=== PATIENT | female | born 1980 | race African-American/Black ===

== ENCOUNTER 2018-10-07 17:31 | Inpatient (IN) ==
[2018-10-07] MEDS ORDERED: Acetaminophen 325 MG Tablet PO PRN (18:15)
[2018-10-07] MEDS ORDERED: hydrALAZINE HCl Inj 20 MG/ML Vial IV.PUSH PRN ×2 (18:15→18:36)
[2018-10-07] MEDS ORDERED: Mag Sulf/Water 4 gm/100 ml 100 ML IV.SIG ONE (18:15)
[2018-10-07] MEDS ORDERED: Labetalol HCl Inj 100 MG/20 ML Vial IV.PUSH PRN ×3 (18:15→18:36)
[2018-10-07] MEDS ORDERED: Naloxone Inj 0.4 MG/ML Vial IV.PUSH PRN (18:17)
[2018-10-07] MEDS ORDERED: Oxytocin 30 Units/500ml Premix 30 UNITS/500 ML BAG IV.SIG ONE (18:17)
--- NOTE | 2018-10-07 18:27 | P.HPOB ---
History of Present Illness Primary Care Physician: No Primary Care Physician Deonna Santamaria Chief Complaint: High blood pressure History of Present Illness: Patient is a 38-year-old white female at 39 weeks she is Deonna Rosalio care and has a history of chronic hypertension is been on Procardia 20 mg a day. She states her blood pressures have been within normal limits until she saw Deonna Santamaria today and her blood pressure was 180/110 and she was sent here because of that. She does complain of a mild frontal headache but otherwise has no complaints or problems no abdominal pain no visual changes no swelling, baby is active and she is ubaldo every 2 minutes with a reactive NST. She has 2 ultrasounds in her records at 14 weeks and 20 weeks that are consistent with an EDC of 10/13/2018 make her now 39 weeks Weeks Gestation:: 39 Para: 2 : 3 Review of Systems All other systems reviewed negative except as stated in HPI [facility] - Medical History Medical History: Medical History (Last Updated 10/07/18 @ 18:23 by Shubham Page MD) Chronic hypertension affecting - Social History I have reviewed the patient's Social History: Yes - Tobacco History Smoking Status: Never smoker - Alcohol History How Often Do You Have a Drink Containing Alcohol: Never - Substance Use History Substance History: No History of Abuse - Travel History History of Recent Travel: No Recent Travel in the [place] Within the Last 8 Weeks: No Recent Travel Out of the Country Within the Last 8 Weeks: No Medications and Allergies Active Medications: Active Medications Acetaminophen (Tylenol) 650 mg PO Q4H PRN PRN Reason: PAIN SCALE 1 TO 2 Calcium Gluconate (Calcium Gluconate Inj) 1 gm IV.PUSH PRN PRN PRN Reason: Magnesium toxicity Hydralazine HCl (Apresoline Inj) 5 mg IV.PUSH NOW PRN PRN Reason: SEE LABEL COMMENTS Hydralazine HCl (Apresoline Inj) 10 mg IV.PUSH NOW PRN PRN Reason: SEE LABEL COMMENTS Lactated Ringer's (Lr 1000 Ml Inj) 1,000 mls @ 75 mls/hr IV.CONT .[id number] BAUDILIO Magnesium Sulfate (Magnesium Sulfate/Water 4 Gm/100 Ml Premix) 100 mls @ 300 mls/hr IV.SIG ONCE ONE Stop: 10/07/18 18:34 Magnesium Sulfate (Magnesium Sulfate/Water 40 Gm/1000 Ml Premix) 40 gm in 1, 000 mls @ 50 mls/hr IV.CONT Q24H BAUDILIO Labetalol HCl (Trandate Inj) 20 mg IV.PUSH NOW PRN PRN Reason: SEE LABEL COMMENTS Labetalol HCl (Trandate Inj) 40 mg IV.PUSH NOW PRN PRN Reason: SEE LABEL COMMENTS Labetalol HCl (Trandate Inj) 80 mg IV.PUSH NOW PRN PRN Reason: SEE LABEL COMMENTS Ondansetron HCl (Zofran Inj) 4 mg IV.PUSH Q6H PRN PRN Reason: NAUSEA OR VOMITING Sodium Chloride (Ns Flush) 2 ml IV.FLUSH BID BAUDILIO Sodium Chloride (Ns Flush) 2 ml IV.FLUSH PRN PRN PRN Reason: FLUSH AFTER USING IV ACCESS Allergies Allergy/AdvReac Type Severity Reaction Status Date / Time No Known Allergies Allergy Verified 10/07/18 18:19 Home Medications Medication Instructions Recorded Confirmed Type nifedipine [Procardia] 20 mg PO DAILY 10/07/18 10/07/18 History vit,[id number] 1 tab PO DAILY 10/07/18 10/07/18 History [PNV 29-1] Exam Vital signs: Vital Signs 10/07/18 18:00 Temperature 98.7 F Pulse Rate 116 H Respiratory Rate 17 Blood Pressure 174/119 H Intake & Output 10/06/18 10/07/18 10/07/18 18:59 06:59 18:59 Weight 92.533 kg Narrative: GENERAL: Well-nourished, well-developed patient. SKIN: Warm and dry. HEAD: Normocephalic and atraumatic. EYES: No scleral icterus. No injection or drainage. ENT: No nasal drainage noted. Mucous membranes pink. Airway patent. NECK: Supple, trachea midline. No JVD. CARDIOVASCULAR: tachy rate and reg rhythm without murmurs, gallops, or rubs. RESPIRATORY: Breath sounds equal bilaterally. No accessory muscle use. BREASTS: Bilateral exam showed no masses , no retractions, no nipple discharge. ABDOMEN/GI: Abdomen soft, non-tender, bowel sounds present, no rebound, no guarding Gravid to [-39] weeks size Fundal Height: [38-] GENITOURINARY: External Genitalia: intact and normal in appearance BUS glands: [-] Cervix: [-post] Dilatation: [-1] Effacement: [thick-] Station: [-High] Presentation: [-vtx by US] Membranes: [intact ] Uterine Contractions: [q 2min-] FHT's: Category: [1-] Baseline: [-133] Reactive: [-R] Variability: [mod-] Decels: [-0] EXTREMITIES: No cyanosis or edema. BACK: Nontender without obvious deformity. No CVA tenderness. NEUROLOGICAL: Awake and alert. Motor and sensory grossly within normal limits. Five out of 5 muscle strength in all muscle groups. Normal speech. Results - Labs Group B Strep: Negative - Imaging Cephalic presentation by ultrasound Caprini VTE Risk Assessment Caprini VTE Risk Assessment: No/Low Risk (score <= 1) Caprini Risk Assessment Model: Point Value = 1 Point Value = 2 Point Value = 3 Point Value = 5 Age 41-60 Minor surgery BMI > 25 kg/m2 Swollen legs Varicose veins or History of unexplained or recurrent spontaneous Oral contraceptives or hormone replacement Sepsis (< 1 month) Serious lung disease, including pneumonia (< 1 month) Abnormal pulmonary function Acute myocardial infarction Congestive heart failure (< 1 month) History of inflammatory bowel disease Medical patient at bed rest Age 61-74 Arthroscopic surgery Major open surgery (> 45 min) Laparoscopic surgery (> 45 min) Malignancy Confined to bed (> 72 hours) Immobilizing plaster cast Central venous access Age >= 75 History of VTE Family history of VTE Factor V Leiden Prothrombin [id number] Lupus anticoagulant Anticardiolipin antibodies Elevated serum homocysteine Heparin-induced thrombocytopenia Other congenital or acquired thrombophilia Stroke (< 1 month) Elective arthroplasty Hip, pelvis, or leg fracture Acute spinal cord injury (< 1 month) Prophylaxis Regimen: Total Risk Factor Score Risk Level Prophylaxis Regimen 0-1 Low Early ambulation 2 Moderate Order ONE of the following: *Sequential Compression Device (SCD) *Heparin 5000 units SQ BID 3-4 Higher Order ONE of the following medications: *Heparin 5000 units SQ TID *Enoxaparin/Lovenox 40 mg SQ daily (WT < 150 kg, CrCl > 30 mL/min) *Enoxaparin/Lovenox 30 mg SQ daily (WT < 150 kg, CrCl > 10-29 mL/min) *Enoxaparin/Lovenox 30 mg SQ BID (WT < 150 kg, CrCl > 30 mL/min) AND/OR *Sequential Compression Device (SCD) 5 or more Highest Order ONE of the following medications: *Heparin 5000 units SQ TID (Preferred with Epidurals) *Enoxaparin/Lovenox 40 mg SQ daily (WT < 150 kg, CrCl > 30 mL/min) *Enoxaparin/Lovenox 30 mg SQ daily (WT < 150 kg, CrCl > 10-29 mL/min) *Enoxaparin/Lovenox 30 mg SQ BID (WT < 150 kg, CrCl > 30 mL/min) AND *Sequential Compression Device (SCD) Assessment and Plan - Diagnosis (1) 39 weeks gestation of Code(s): Z3A.39 - 39 weeks gestation of Status: Acute (2) Chronic hypertension in obstetric context in third trimester Code(s): O10.913 - Unspecified pre-existing hypertension complicating , third trimester Status: Acute (3) Hypertensive crisis Code(s): I16.9 - Hypertensive crisis, unspecified Status: Acute - Plan This multiparous patient is 39 weeks with history of chronic hypertension now with a excessively high blood pressures in the 157412/100-119 range, she has mild headache but otherwise no symptomatology. She is been on Procardia p.o. and states she is taking this daily, she saw Deonna Santamaria today who then sent her straight here because her blood pressures were too high Plan is to follow the hypertensive emergency algorithm with IV magnesium sulfate seizure prophylaxis, IV antihypertensives Patient is ubaldo every 2 minutes but cervix shows no sign of change at this time very high and posterior, would recommend delivery as therapy for this hypertensive issue and will proceed with augmentation as needed.
[2018-10-07] MEDS ORDERED: Citric Acid/Sodium Citrate Liq 30 ML UDC PO SCH (18:30)
[2018-10-07 18:47] LABS: Hematocrit 38.1 % (35.0-46.0); Hemoglobin 12.7 gm/dL (11.6-15.3); Mean Corpuscular HGB Conc 33.3 % (32.0-36.0); Mean Corpuscular Hemoglobin 30.4 pg (27.0-34.0); Mean Corpuscular Volume 91.1 fL (80.0-100.0); Mean Platelet Volume 9.6 fL (7.0-11.0); Platelet Count 236 th/mm3 (150-450); Red Blood Count 4.19 mil/mm3 (4.00-5.30); Red Cell Distribution Width 13.9 % (11.6-17.2); White Blood Count 8.3 th/mm3 (4.0-11.0)
[2018-10-07] MEDS: Mag Sulf/Water 40 gm/1000 ml 40 GM/1,000 ML BAG IV.CONT SCH (18:59)
[2018-10-07 19:04] LABS: Anion Gap 8 meq/L (5-15); Aspartate Aminotransferase 35 U/L (15-37); Blood Urea Nitrogen 10 mg/dL (7-18); Calcium 9.2 mg/dL (8.5-10.1); Carbon Dioxide 23.4 meq/L (21.0-32.0); Chloride 104 meq/L (98-107); Glomerular Filtration Rate 85 mL/min (>89); Glucose,Random 76 mg/dL (74-106); Sodium 135 meq/L (136-145)
[2018-10-07 19:07] LABS: Alanine Aminotransferase 24 U/L (10-53); Alkaline Phosphatase 144 U/L (45-117); Total Protein 7.5 g/dL (6.4-8.2)
[2018-10-07 20:05] LABS: Amorphous Sediment,Urine Rare /hpf; Bilirubin,Urine Negative (Negative); Clarity,Urine Hazy (Clear); Color,Urine Yellow (Yellw/Straw); Glucose,Urine (UA) Negative (Negative); Leukocyte Esterase,Urine Negative (Negative); Nitrite,Urine Negative (Negative); Specific Gravity,Urine 1.009 (1.002-1.035); Squamous Epithelial Cell,Urine 2 /hpf (0-5)
[2018-10-08] MEDS ORDERED: Oxytocin 30 Units/500ml Premix 30 UNITS/500 ML BAG IV.SIG PRN (08:15)
--- NOTE | 2018-10-08 08:32 | P.OBLABOR ---
Subjective Interval history: Patient seen and examined this am.Pt reports she feels comfortable. Endorses movement. Denies contractions, LOF or bleeding. Her headache resolved. Denies CP, SOB, RUQ pain, dizziness, vision issues, or n/a. No other complaints. Objective Vital Signs: Vital Signs - 8 hr 10/08/18 00:57 10/08/18 00:58 10/08/18 02:04 Temperature 99.2 F Pulse Rate 84 95 H Respiratory Rate 18 18 Blood Pressure 120/68 148/95 H 10/08/18 02:10 10/08/18 03:02 10/08/18 03:10 Temperature Pulse Rate 82 83 95 H Respiratory Rate 18 Blood Pressure 114/78 10/08/18 04:00 10/08/18 04:03 10/08/18 04:05 Temperature Pulse Rate 84 101 H Respiratory Rate 18 Blood Pressure 138/95 H 10/08/18 04:10 10/08/18 05:01 10/08/18 05:05 Temperature Pulse Rate 83 94 H 101 H Respiratory Rate 18 Blood Pressure 133/91 H 10/08/18 05:10 10/08/18 06:10 10/08/18 06:15 Temperature Pulse Rate 95 H 94 H Respiratory Rate 18 Blood Pressure 113/60 10/08/18 07:05 10/08/18 07:43 10/08/18 08:00 Temperature 99.3 F Pulse Rate 89 94 H 101 H Respiratory Rate 18 Blood Pressure 117/73 135/91 H 10/08/18 08:10 10/08/18 08:12 Temperature Pulse Rate 85 Respiratory Rate 18 Blood Pressure Objective: Pelvic Exam: Dilatation: 2 Effacement:30 Station: -3 Presentation:vertex Membranes: intact Uterine Contractions: Irregular every 2-7 minutes FHT's: Category: 1 Baseline: 130 Reactive: minimal due to mag sulf treatment but (reactive prior to mag sulf treatment) Variability: minimal Decels: none Assessment and Plan - Diagnosis (1) 39 weeks gestation of Code(s): Z3A.39 - 39 weeks gestation of Status: Acute Plan: 38y/o female at 39 weeks gestation admitted for labor induction. complicated by chronic hypertension. -GBS negative -Cervical exam: /-3 -Patient started on mag sulfate, Pit and Cervidil - heart monitoring category 1 -Blood pressure 135/91 this morning, improving compared to admission BP of 174/ 119 -Continue with hypertension protocol as needed -Expectant delivery dw Dr. Camilo MD - Plan This multiparous patient is 39 weeks with history of chronic hypertension now with a excessively high blood pressures in the 431158/100-119 range, she has mild headache but otherwise no symptomatology. She is been on Procardia p.o. and states she is taking this daily, she saw Deonna Santamaria today who then sent her straight here because her blood pressures were too high Plan is to follow the hypertensive emergency algorithm with IV magnesium sulfate seizure prophylaxis, IV antihypertensives Patient is ubaldo every 2 minutes but cervix shows no sign of change at this time very high and posterior, would recommend delivery as therapy for this hypertensive issue and will proceed with augmentation as needed.
[2018-10-08] MEDS: Mag Sulf/Water 40 gm/1000 ml 40 GM/1,000 ML BAG IV.CONT SCH ×2 (14:14→22:23)
[2018-10-08] MEDS: fentaNYL Citrate Inj 100 MCG/2 ML Ampul IV.PUSH PRN ×4 (14:21→23:54)
--- NOTE | 2018-10-08 14:37 | P.OBLABOR ---
Subjective Interval history: Patient was resting comfortably during my evaluation. She has no concerns or complaints. She reports contractions at this time. She states that she does feel "a little funny "from the magnesium. Objective Vital Signs: Vital Signs - 8 hr 10/08/18 07:05 10/08/18 07:43 10/08/18 08:00 Temperature 99.3 F Pulse Rate 89 94 H 101 H Respiratory Rate 18 Blood Pressure 117/73 135/91 H 10/08/18 08:10 10/08/18 08:12 10/08/18 09:05 Temperature Pulse Rate 85 99 H Respiratory Rate 18 Blood Pressure 138/94 H 10/08/18 09:15 10/08/18 09:30 10/08/18 09:52 Temperature 99.0 F Pulse Rate 87 90 96 H Respiratory Rate 18 18 Blood Pressure 147/83 H 10/08/18 09:53 10/08/18 10:10 10/08/18 10:25 Temperature Pulse Rate 81 106 H 102 H Respiratory Rate 18 Blood Pressure 141/91 H 126/83 10/08/18 10:30 10/08/18 10:35 10/08/18 10:59 Temperature Pulse Rate 89 98 H 89 Respiratory Rate 18 Blood Pressure 147/104 H 10/08/18 11:00 10/08/18 11:30 10/08/18 12:00 Temperature Pulse Rate 84 95 H Respiratory Rate 18 18 Blood Pressure 130/87 126/83 10/08/18 12:10 10/08/18 12:20 10/08/18 12:22 Temperature Pulse Rate 89 82 Respiratory Rate 18 Blood Pressure 116/67 10/08/18 12:35 10/08/18 12:58 10/08/18 13:00 Temperature Pulse Rate 86 91 H 79 Respiratory Rate 18 Blood Pressure 135/85 132/77 10/08/18 13:30 10/08/18 14:10 Temperature Pulse Rate 87 90 Respiratory Rate Blood Pressure 129/84 117/74 Objective: Pelvic Exam: Cervix: Posterior Dilatation: 2 Effacement: 30 Station: -3 Presentation: Vertex Membranes: Intact Uterine Contractions: Yes FHT's: Category: 1 Baseline: 140 Reactive: Yes Variability: Moderate Decels: None Weeks Gestation: 39 Patient Started Active Labor: No Medical Induction of Labor: Yes Medical Induction Start Date: 10/07/18 Assessment and Plan - Diagnosis (1) 39 weeks gestation of Code(s): Z3A.39 - 39 weeks gestation of Status: Acute Plan: 38y/o female at 39 weeks gestation admitted for labor induction. complicated by chronic hypertension. -GBS negative -Cervical exam unchanged: /3 -Continue mag sulfate and Pit - heart monitoring category 1 with baseline 140 -Blood pressure 117/74 during my evaluation -Continue with hypertension protocol as needed -We will defer cervical checks until patient exhibits more active labor on monitoring strip -Anticipate vaginal delivery dw Dr. Royce MD - Attending Attestation The exam, history, and the medical decision-making described in the above note were completed with the assistance of the resident physician. I reviewed and agree with the findings presented. I attest that I had a [id number] encounter with the patient on the same day, and personally performed and documented my assessment and findings in the medical record.
[2018-10-09] MEDS ORDERED: fentaNYL 2MCG-Bupiv 0.125% Epi 150 ML EPIDURAL ONE (00:26)
[2018-10-09] MEDS ORDERED: Bupivacaine PF 0.25% Inj 10 ML Vial ONE (00:32)
[2018-10-09] MEDS ORDERED: fentaNYL 2MCG-Bupiv 0.125% Epi 150 ML EPIDURAL PRN (01:44)
[2018-10-09] MEDS ORDERED: fentaNYL Citrate Inj 100 MCG/2 ML Ampul EPIDURAL ONE (01:44)
--- NOTE | 2018-10-09 04:43 | P.OBLABOR ---
Subjective Interval history: Patient examined. Reports she feels comfortable but is having sensation of rectal pressure. Other morales no other complaints. Nurse reported slight decrease in pt's urine output. Objective Vital Signs: Vital Signs - 8 hr 10/08/18 21:15 10/08/18 21:30 10/08/18 21:37 Temperature Pulse Rate 97 H 96 H 90 Respiratory Rate 18 18 Blood Pressure 150/94 H 152/93 H 10/08/18 21:40 10/08/18 22:03 10/08/18 22:10 Temperature Pulse Rate 89 88 85 Respiratory Rate 18 Blood Pressure 115/65 10/08/18 22:37 10/08/18 23:07 10/08/18 23:10 Temperature Pulse Rate 104 H 96 H 94 H Respiratory Rate 18 18 Blood Pressure 141/86 H 126/78 10/08/18 23:35 10/09/18 00:10 10/09/18 00:40 Temperature Pulse Rate 96 H 98 H 100 H Respiratory Rate 18 Blood Pressure 131/78 153/101 H 91/42 L 10/09/18 00:50 10/09/18 01:02 10/09/18 01:03 Temperature 98.3 F Pulse Rate 107 H 113 H 111 H Respiratory Rate 18 Blood Pressure 161/112 H 148/110 H 146/79 H 10/09/18 01:36 10/09/18 01:37 10/09/18 01:49 Temperature Pulse Rate 88 Respiratory Rate 18 18 Blood Pressure 80/40 L 10/09/18 01:53 10/09/18 01:58 10/09/18 02:00 Temperature Pulse Rate 94 H 96 H 97 H Respiratory Rate Blood Pressure 95/44 L 102/44 L 80/59 L 10/09/18 02:05 10/09/18 02:30 10/09/18 03:00 Temperature Pulse Rate 96 H 98 H 103 H Respiratory Rate 18 Blood Pressure 87/37 L 119/54 L 10/09/18 03:30 10/09/18 03:36 10/09/18 04:10 Temperature 98.3 F Pulse Rate 101 H 101 H Respiratory Rate 18 Blood Pressure 100/79 113/63 Objective: Pelvic Exam: Dilatation: 6 Effacement: 100 Station:-3 Presentation: vertex Membranes: ruptured mec Uterine Contractions: Q3 mins FHT's: Category: 1 Baseline: 140 Reactive: yes Variability: minimal pt on mag sulf Decels: none Acceleration: present Assessment and Plan - Diagnosis (1) 39 weeks gestation of Code(s): Z3A.39 - 39 weeks gestation of Status: Acute Plan: 38y/o female at 39 weeks gestation admitted for labor induction. complicated by chronic hypertension. -GBS negative -Cervical exam: 6/100/-3 -patient with slight decrease in urine output (35cc/hr) thus will decrease mag sulfate to 1G/hr and give 1 LR bolus (500ml). -c/w pit - heart monitoring category 1 with baseline 140 -pt is s/p 1 LR bolus of 500mls for prior drop in BP (87/37) after receiving epidural -Blood pressure 123/70 during my evaluation -Continue with hypertension protocol as needed -Anticipate vaginal delivery dw Dr. Royce MD - Plan The exam, history, and the medical decision-making described in the above note were completed with the assistance of the resident physician. I reviewed and agree with the findings presented. I attest that I had a [id number] encounter with the patient on the same day, and personally performed and documented my assessment and findings in the medical record.
[2018-10-09 09:09] LABS: Baso % (Auto) 0.2 % (0.0-2.0); Eos % (Auto) 0.4 % (0.0-4.0); Hematocrit 35.6 % (35.0-46.0); Hemoglobin 12.2 gm/dL (11.6-15.3); Lymph % (Auto) 10.2 % (9.0-44.0); Mean Corpuscular HGB Conc 34.2 % (32.0-36.0); Mean Corpuscular Hemoglobin 31.3 pg (27.0-34.0); Mean Corpuscular Volume 91.6 fL (80.0-100.0); Mean Platelet Volume 9.3 fL (7.0-11.0); Mono # (Auto) 1.1 th/mm3 (0.0-0.9); Mono % (Auto) 11.3 % (0.0-8.0); Neut # (Auto) 7.3 th/mm3 (1.8-7.7); Neut % (Auto) 77.9 % (16.0-70.0); Platelet Count 204 th/mm3 (150-450); Red Blood Count 3.89 mil/mm3 (4.00-5.30); Red Cell Distribution Width 13.7 % (11.6-17.2); White Blood Count 9.3 th/mm3 (4.0-11.0)
[2018-10-09 09:15] LABS: Alanine Aminotransferase 20 U/L (10-53); Albumin 2.7 g/dL (3.4-5.0); Alkaline Phosphatase 146 U/L (45-117); Anion Gap 11 meq/L (5-15); Aspartate Aminotransferase 25 U/L (15-37); Blood Urea Nitrogen 8 mg/dL (7-18); Carbon Dioxide 22.8 meq/L (21.0-32.0); Chloride 99 meq/L (98-107); Glomerular Filtration Rate 58 mL/min (>89); Glucose,Random 102 mg/dL (74-106); Sodium 133 meq/L (136-145); Total Protein 6.7 g/dL (6.4-8.2)
[2018-10-09] MEDS ORDERED: NIFEdipine 10 MG Capsule ONE (10:36)
[2018-10-09] MEDS ORDERED: NIFEdipine 10 MG Capsule PO ONE (11:00)
[2018-10-09 13:06] LABS: Cord Arterial Blood HCO3 23.4
--- NOTE | 2018-10-09 13:59 | P.OBDELI ---
Weeks Gestation: 39 Patient Started Active Labor: Yes Medical Induction of Labor: Yes Artificial Rupture of Membrane: No Anesthesia: Epidural Episiotomy: right mediolateral Vaginal Delivery: Normal, Spontaneous Presentation: Occiput anterior Nuchal Cord: None Delayed Cord Clamping (45 sec): No Shoulder Dystocia: Suprapubic pressure given, Toney maneuver done, Other ( delivery of R posterior arm, total shoulder time approx 90sec) Placenta: Spontaneous delivery, Not intact, Cord pH (7.295) Laceration: 2 deg Estimated blood loss (mL): 350 (additional 250 in OR (see additional note)) Infant: Female Female A Delivery Date: 10/09/18 Infant Delivery Time: 12:43 Weight: 3.657 kg score (1 min): 7 score (5 min): 8 Additional Information: A cervical laceration was palpated and pt was taken to the OR for repair.
[2018-10-09] MEDS: Mag Sulf/Water 40 gm/1000 ml 40 GM/1,000 ML BAG IV.CONT SCH (14:07)
--- NOTE | 2018-10-09 14:08 | P.OP ---
- Preoperative Diagnosis (1) Cervical laceration Date of procedure: 10/09/18 Procedure: Repair of posterior cervical laceration Anesthesia: epidural Surgeon: MD Kingston Lou MD Estimated blood loss (mL): 250 IV fluids (mL): 800 Urine output (mL): 300 (hematuria lessening) Pathology: none sent Operation and Findings: The pt was taken to the OR immediately following delivery when palpable cervical laceration identified. She was placed in dorsal lithotomy in Wild stirrups. The perineal area was cleansed and a fu replaced under sterile conditions. A weighted speculum was placed into the vagina and utilizing multiple ring forceps, a large posterior cervical laceration to the level of the cul-de-sac was identified. Suctioning was performed and minimal bleeding was seen. A 3-0 vicryl suture was placed at the apex and run to the distal cervix, reapproximating the tissue appropriately. Next, a [id number] suture of chromic was used to reinforce the apex. The area was watched and found to be hemostatic. An area of necrotic cervix at 9-10 o'clock was suture ligated with chromic in a Ray stitch and excellent hemostasis confirmed. The 2' mediolateral laceration was reinforced with 3-0 vicryl. Intraoperatively, pt continued to have severe range blood pressures. Magnesium continued at 1g/hr and she received 10mg of IV labetalol which controlled pressures along with dosing of her epidural. The pt tolerated the procedure well. There were no complications. She will be monitored on L&D for 24hrs with continuation of magnesium. Given increased UOP and improving hematuria since delivery, will increase to 2g/hr of magnesium for seizure ppx.
[2018-10-09] MEDS ORDERED: fentaNYL Citrate Inj 100 MCG/2 ML Ampul ONE (14:29)
[2018-10-09 14:36] LABS: Hematocrit 29.3 % (35.0-46.0); Hemoglobin 9.9 gm/dL (11.6-15.3)
[2018-10-09] MEDS ORDERED: Mag Sulf/Water 40 gm/1000 ml 40 GM/1,000 ML BAG IV.CONT ONE (14:39)
--- NOTE | 2018-10-10 08:33 | P.PNOB ---
Subjective Post day: 1 Interval history: Patient is a 38-year-old G 3 P 3 delivered at 39 weeks. Patient is day 1 after spontaneous vaginal delivery. The delivery was complicated by a cervical laceration which required surgical intervention. Patient's pain is well-controlled. Patient reports eating and drinking without any nausea or vomiting. Patient reports minimal bleeding. Patient has passed gas but no bowel movements. Patient denies lower extremity pain or shortness of breath. Patient reports desire for breast-feeding. Objective Vital Signs/I&O: Vital Signs 10/09/18 08:40 10/09/18 08:55 10/09/18 09:00 Temperature Pulse Rate 108 H 105 H 97 H Respiratory Rate 16 Blood Pressure 129/75 10/09/18 09:05 10/09/18 09:10 10/09/18 09:15 Temperature Pulse Rate 108 H 105 H 107 H Respiratory Rate Blood Pressure 10/09/18 09:20 10/09/18 09:25 10/09/18 09:30 Temperature Pulse Rate 101 H 102 H 107 H Respiratory Rate 14 Blood Pressure 136/91 H 10/09/18 09:35 10/09/18 09:40 10/09/18 09:55 Temperature Pulse Rate 101 H 103 H 102 H Respiratory Rate Blood Pressure 10/09/18 10:10 10/09/18 10:15 10/09/18 10:20 Temperature 98.0 F Pulse Rate 108 H 108 H 97 H Respiratory Rate 18 Blood Pressure 138/85 10/09/18 10:25 10/09/18 10:35 10/09/18 10:50 Temperature Pulse Rate 104 H 97 H 98 H Respiratory Rate Blood Pressure 140/94 H 151/97 H 10/09/18 10:55 10/09/18 10:59 10/09/18 11:00 Temperature 97.7 F Pulse Rate 103 H 106 H Respiratory Rate 16 Blood Pressure 124/71 10/09/18 11:10 10/09/18 11:20 10/09/18 11:22 Temperature Pulse Rate 102 H 100 H 96 H Respiratory Rate Blood Pressure 102/59 L 105/63 10/09/18 11:25 10/09/18 11:30 10/09/18 11:40 Temperature Pulse Rate 96 H 108 H 113 H Respiratory Rate 16 Blood Pressure 125/92 H 10/09/18 12:00 10/09/18 12:05 10/09/18 12:10 Temperature Pulse Rate 114 H 98 H 101 H Respiratory Rate 18 Blood Pressure 129/95 H 10/09/18 12:15 10/09/18 12:25 10/09/18 12:40 Temperature Pulse Rate 100 H 101 H 112 H Respiratory Rate Blood Pressure 125/74 152/84 H 10/09/18 13:08 10/09/18 14:15 10/09/18 14:16 Temperature 97.9 F Pulse Rate 88 84 Respiratory Rate 20 20 Blood Pressure 135/64 98/54 L 10/09/18 14:27 10/09/18 14:43 10/09/18 14:57 Temperature Pulse Rate 95 H Respiratory Rate 18 Blood Pressure 88/57 L 119/66 149/80 H 10/09/18 15:40 10/09/18 15:45 10/09/18 16:15 Temperature Pulse Rate 160 H 90 100 H Respiratory Rate 16 Blood Pressure 146/105 H 146/91 H 138/84 10/09/18 16:21 10/09/18 16:25 10/09/18 16:30 Temperature 98.4 F Pulse Rate 100 H 101 H Respiratory Rate 16 Blood Pressure 134/85 10/09/18 16:35 10/09/18 16:55 10/09/18 17:00 Temperature Pulse Rate 98 H 98 H 103 H Respiratory Rate Blood Pressure 10/09/18 17:11 10/09/18 17:25 10/09/18 17:47 Temperature Pulse Rate 105 H 100 H 110 H Respiratory Rate 18 16 Blood Pressure 153/95 H 148/85 H 10/09/18 17:50 10/09/18 18:00 10/09/18 18:15 Temperature Pulse Rate 106 H 109 H 107 H Respiratory Rate Blood Pressure 141/85 H 10/09/18 18:45 10/09/18 19:25 10/09/18 19:30 Temperature 99.5 F Pulse Rate 107 H 107 H Respiratory Rate 16 Blood Pressure 135/77 144/85 H 10/09/18 20:30 10/09/18 21:30 10/09/18 22:26 Temperature Pulse Rate 104 H 106 H 112 H Respiratory Rate 16 16 16 Blood Pressure 145/96 H 151/86 H 130/77 10/09/18 23:25 10/09/18 23:30 10/10/18 00:30 Temperature 98.4 F Pulse Rate 112 H 117 H Respiratory Rate 16 16 Blood Pressure 129/88 148/90 H 10/10/18 01:22 10/10/18 01:25 10/10/18 02:30 Temperature Pulse Rate 111 H 103 H 107 H Respiratory Rate 16 16 Blood Pressure 137/68 118/62 10/10/18 03:30 10/10/18 04:20 10/10/18 04:30 Temperature Pulse Rate 110 H 94 H Respiratory Rate 16 16 Blood Pressure 132/79 139/89 10/10/18 05:30 10/10/18 06:25 10/10/18 06:30 Temperature 98.0 F Pulse Rate 101 H 99 H Respiratory Rate 16 16 Blood Pressure 142/89 H 140/93 H 10/10/18 07:15 10/10/18 07:23 10/10/18 07:50 Temperature 98.1 F Pulse Rate 96 H 93 H Respiratory Rate 14 14 16 Blood Pressure 139/88 119/69 10/10/18 07:55 Temperature Pulse Rate 87 Respiratory Rate Blood Pressure Intake & Output 10/09/18 10/10/18 10/10/18 18:59 06:59 18:59 Intake Total 1999 / 1999 1000 / 1000 Balance 2000 / 1999 1000 / 1000 Intake: IV 1999 / 1999 1000 / 1000 LR 1000 mL Inj 1,000 ML @ 75 1000 / 1000 1000 / 1000 mls/hr IV.CONT .[id number] [facility] Rx# :[id number] Magnesium Sulfate/Water 40 gm/ 1000 / 1000 1000 ml Premix 40 gm In 1,000 ml @ 2 GM/HR 50 mls/hr IV.CONT Q24H [facility] Rx#:[id number] Result Diagrams: 10/09/18 13:58 10/09/18 08:40 Objective Remarks: GENERAL: Well-nourished, well-developed patient. CARDIOVASCULAR: Regular rate and rhythm without murmurs, gallops, or rubs. RESPIRATORY: Breath sounds equal bilaterally. No accessory muscle use. ABDOMEN/GI: Abdomen soft, non-tender. Fundus: Firm, non-tender at umbilicus. GENITOURINARY: Light to moderate bleeding. EXTREMITIES: No cyanosis or edema, non-tender, without signs of DVT. Medications and IVs: Active Medications Acetaminophen (Tylenol) 650 mg PO Q4H PRN PRN Reason: PAIN SCALE 1 TO 2 Calcium Gluconate (Calcium Gluconate Inj) 1 gm IV.PUSH PRN PRN PRN Reason: Magnesium toxicity Citric Acid/Sodium Citrate (Sodium Citrate/Citric Acid Liq) 30 ml PO [employer]IST [facility] Stop: 10/11/18 18:29 Fentanyl Citrate (Fentanyl Inj) 100 mcg IV.PUSH Q1H PRN PRN Reason: PAIN SCALE 6 TO 10 Last Admin: 10/08/18 23:54 Dose: 100 mcg Fentanyl Citrate (Fentanyl Inj) 50 mcg IV.PUSH Q1H PRN PRN Reason: Pain Scale 3 - 5 Last Admin: 10/08/18 20:11 Dose: 50 mcg Hydralazine HCl (Apresoline Inj) 10 mg IV.PUSH NOW PRN PRN Reason: SEE LABEL COMMENTS Lactated Ringer's (Lr 1000 Ml Inj) 1,000 mls @ 75 mls/hr IV.CONT .[id number] [facility] Last Admin: 10/10/18 03:33 Dose: 75 mls/hr Magnesium Sulfate (Magnesium Sulfate/Water 40 Gm/1000 Ml Premix) 40 gm in 1, 000 mls @ 50 mls/hr IV.CONT Q24H [facility] Last Admin: 10/09/18 14:07 Dose: 2 gm/hr, 50 mls/hr Oxytocin (Pitocin 30 Units/Ns 500 Ml Premix) 30 units in 500 mls @ 1 mls/hr IV.SIG TITRATE PRN; Protocol PRN Reason: For induction of labor Last Admin: 10/08/18 09:23 Dose: 1 milliunit/min, 1 mls/hr Fentanyl/Bupivacaine/Sodium Chlor (Fentanyl 2 Mcg-Bupiv 0.125% Epi) 150 mls @ 12 mls/hr EPIDURAL PRN PRN PRN Reason: for Labor Pain Ibuprofen (Motrin) 800 mg PO Q8H PRN PRN Reason: PAIN SCALE 1-6 Last Admin: 10/10/18 06:22 Dose: 800 mg Labetalol HCl (Trandate Inj) 40 mg IV.PUSH NOW PRN PRN Reason: SEE LABEL COMMENTS Labetalol HCl (Trandate Inj) 80 mg IV.PUSH NOW PRN PRN Reason: SEE LABEL COMMENTS Lidocaine HCl (Xylocaine 1% Inj) 0.1 ml I-DERMAL PRN PRN PRN Reason: For IV start Stop: 10/10/18 18:16 Mineral Oil (Muri-Lube Oil) 10 ml TOPICAL PRN PRN PRN Reason: PRN perineal massage Naloxone HCl (Narcan Inj) 0.1 mg IV.PUSH Q2M PRN PRN Reason: for opiate reversal Ondansetron HCl (Zofran Inj) 4 mg IV.PUSH Q6H PRN PRN Reason: NAUSEA OR VOMITING Sodium Chloride (Ns Flush) 2 ml IV.FLUSH BID BAUDILIO Last Admin: 10/09/18 22:36 Dose: Not Given Sodium Chloride (Ns Flush) 2 ml IV.FLUSH PRN PRN PRN Reason: FLUSH AFTER USING IV ACCESS Assessment and Plan - Diagnosis (1) 39 weeks gestation of Code(s): Z3A.39 - 39 weeks gestation of Status: Acute (2) Vaginal delivery Code(s): O80 - Encounter for full-term uncomplicated delivery Status: Acute (3) Cervical laceration Code(s): S37.63XA - Laceration of uterus, initial encounter Status: Acute - Plan Patient is a 38-year-old G 3 P 3 delivered at 39 weeks. Patient is day 1 after . Patient was counseled to do 6 weeks of pelvic rest. Patient was counseled to follow up in 6 weeks. --Blood pressure 146\85. Continue to monitor. --Continue magnesium sulfate until 12:43 PM --Creatinine raised at 1.24 10/10. Diuresed 6.7L in 24 hours. CMP to monitor creatinine. --Motrin and Percocet when necessary for pain --Encourage OOB --Pelvic rest for 6 weeks will need follow-up appointment at that time. --Contraception: Patient states that she will abstain. She is not interested in pharmacological contraception. --Anticipate discharge tomorrow Discussed with OB hospitalist, Dr. Piedra
[2018-10-10 10:20] LABS: Alanine Aminotransferase 16 U/L (10-53); Albumin 2.1 g/dL (3.4-5.0); Alkaline Phosphatase 105 U/L (45-117); Anion Gap 11 meq/L (5-15); Aspartate Aminotransferase 28 U/L (15-37); Blood Urea Nitrogen 6 mg/dL (7-18); Calcium 7.8 mg/dL (8.5-10.1); Chloride 104 meq/L (98-107); Glomerular Filtration Rate 77 mL/min (>89); Glucose,Random 130 mg/dL (74-106); Potassium 3.6 meq/L (3.5-5.1); Sodium 139 meq/L (136-145); Total Protein 5.4 g/dL (6.4-8.2)
[2018-10-10] MEDS ORDERED: hydrALAZINE HCl Inj 20 MG/ML Vial ONE (14:07)
[2018-10-10] MEDS ORDERED: hydrALAZINE HCl Inj 20 MG/ML Vial IV.PUSH ONE (14:30)
[2018-10-10] MEDS ORDERED: Bisacodyl 10 MG Supp RECTAL PRN (15:02)
[2018-10-10] MEDS ORDERED: Oxytocin 30 Units/500ml Premix 30 UNITS/500 ML BAG IV.CONT PRN (15:02)
[2018-10-10] MEDS ORDERED: Witch Hazel 50%/Glyderin 12.5% 40 Pad Jar RECTAL PRN (15:02)
[2018-10-10] MEDS ORDERED: Benzocaine 20% Top Spray 60 ML Can TOPICAL PRN (15:02)
[2018-10-10] MEDS ORDERED: Measles/Mumps/Rubella Vaccine Inj 0.5 ML Vial SQ ONE (16:00)
[2018-10-10] MEDS ORDERED: Diphtheria/Tetanus/Pertussis Vaccine Inj 0.5 ML Syringe IM ONE (16:00)
[2018-10-10] MEDS ORDERED: Zolpidem Tartrate 5 MG Tablet PO PRN (21:00)
[2018-10-10] MEDS: Senna/Docusate Sodium 8.6/50 MG Tablet PO SCH (23:14)
--- NOTE | 2018-10-11 07:47 | P.PNOB ---
Subjective Post day: 2 Interval history: Patient seen and examined this morning. AFVSS overnight. day #2. Pain well controlled. Decreased lochia. Denies dysuria. No breast tenderness. She is feeding the baby via breast. Appetite good. No nausea or vomiting. Positive flatus. No bowel movement yet. ambulating well. Denies calf pain, shortness of breath, or cough. She otherwise has no other complaints or concerns this morning. Objective Vital Signs/I&O: Vital Signs 10/10/18 07:50 10/10/18 07:55 10/10/18 08:35 Temperature 98.1 F Pulse Rate 93 H 87 91 H Respiratory Rate 16 Blood Pressure 119/69 146/85 H 10/10/18 08:40 10/10/18 08:55 10/10/18 09:20 Temperature Pulse Rate 91 H 83 89 Respiratory Rate Blood Pressure 150/96 H 10/10/18 09:25 10/10/18 09:30 10/10/18 09:55 Temperature Pulse Rate 92 H 88 83 Respiratory Rate 14 Blood Pressure 132/70 10/10/18 10:25 10/10/18 10:30 10/10/18 11:25 Temperature 98.3 F Pulse Rate 87 97 H Respiratory Rate 16 16 Blood Pressure 142/84 H 10/10/18 12:20 10/10/18 12:22 10/10/18 12:25 Temperature Pulse Rate 89 98 H Respiratory Rate 16 Blood Pressure 127/79 10/10/18 12:45 10/10/18 13:30 10/10/18 14:00 Temperature Pulse Rate 86 77 92 H Respiratory Rate Blood Pressure 142/87 H 157/92 H 162/95 H 10/10/18 14:23 10/10/18 14:45 10/10/18 14:59 Temperature Pulse Rate 92 H Respiratory Rate 18 16 Blood Pressure 161/87 H 10/10/18 15:00 10/10/18 15:30 10/10/18 15:48 Temperature 99.0 F Pulse Rate 92 H 106 H Respiratory Rate 16 Blood Pressure 154/97 H 156/94 H 10/10/18 16:26 10/10/18 16:30 10/10/18 16:37 Temperature 98.9 F Pulse Rate 94 H 84 Respiratory Rate Blood Pressure 139/87 145/93 H 10/10/18 17:15 10/10/18 19:30 10/10/18 23:57 Temperature 98.3 F 98.2 F 99.7 F H Pulse Rate 90 98 H 103 H Respiratory Rate 18 18 18 Blood Pressure 145/100 H 156/92 H 141/86 H 10/11/18 04:20 10/11/18 04:21 10/11/18 05:30 Temperature 98.9 F Pulse Rate 98 H Respiratory Rate 16 Blood Pressure 155/108 H 160/102 H 143/93 H Result Diagrams: 10/09/18 13:58 10/10/18 09:35 Objective Remarks: GENERAL: Well-nourished, well-developed patient. CARDIOVASCULAR: Regular rate and rhythm without murmurs, gallops, or rubs. RESPIRATORY: Breath sounds equal bilaterally. No accessory muscle use. ABDOMEN/GI: Abdomen soft, non-tender. Fundus: Firm, non-tender at umbilicus. GENITOURINARY: Light bleeding. EXTREMITIES: No cyanosis or edema, non-tender, without signs of DVT. Medications and IVs: Active Medications Acetaminophen (Tylenol) 650 mg PO Q4H PRN PRN Reason: PAIN SCALE 1 TO 2 Al Hydroxide/Mg Hydroxide (Milk Of Magnesia Liq) 30 ml PO Q12H PRN PRN Reason: Mild Constipation Benzocaine (Americaine 20% [place]) 1 spray TOPICAL Q4H PRN PRN Reason: For Perineum Discomfort Last Admin: 10/10/18 17:09 Dose: 1 spray Bisacodyl (Dulcolax Supp) 10 mg RECTAL DAILY PRN PRN Reason: SEVERE CONSITIPATION Calcium Gluconate (Calcium Gluconate Inj) 1 gm IV.PUSH PRN PRN PRN Reason: Magnesium toxicity Citric Acid/Sodium Citrate (Sodium Citrate/Citric Acid Liq) 30 ml PO [employer] [facility] Stop: 10/11/18 18:29 Fentanyl Citrate (Fentanyl Inj) 100 mcg IV.PUSH Q1H PRN PRN Reason: PAIN SCALE 6 TO 10 Last Admin: 10/08/18 23:54 Dose: 100 mcg Fentanyl Citrate (Fentanyl Inj) 50 mcg IV.PUSH Q1H PRN PRN Reason: Pain Scale 3 - 5 Last Admin: 10/08/18 20:11 Dose: 50 mcg Hydralazine HCl (Apresoline Inj) 10 mg IV.PUSH NOW PRN PRN Reason: SEE LABEL COMMENTS Lactated Ringer's (Lr 1000 Ml Inj) 1,000 mls @ 75 mls/hr IV.CONT .[id number] [facility] Last Admin: 10/10/18 16:23 Dose: Not Given Oxytocin (Pitocin 30 Units/Ns 500 Ml Premix) 30 units in 500 mls @ 1 mls/hr IV.SIG TITRATE PRN; Protocol PRN Reason: For induction of labor Last Admin: 10/08/18 09:23 Dose: 1 milliunit/min, 1 mls/hr Fentanyl/Bupivacaine/Sodium Chlor (Fentanyl 2 Mcg-Bupiv 0.125% Epi) 150 mls @ 12 mls/hr EPIDURAL PRN PRN PRN Reason: for Labor Pain Oxytocin (Pitocin 30 Units/Ns 500 Ml Premix) 30 units in 500 mls @ 100 mls/hr IV.CONT UNSCH PRN PRN Reason: Heavy bleeding Ibuprofen (Motrin) 800 mg PO Q8H PRN PRN Reason: PAIN SCALE 1-6 Last Admin: 10/10/18 23:14 Dose: 800 mg Labetalol HCl (Trandate Inj) 40 mg IV.PUSH NOW PRN PRN Reason: SEE LABEL COMMENTS Labetalol HCl (Trandate Inj) 80 mg IV.PUSH NOW PRN PRN Reason: SEE LABEL COMMENTS Lactulose (Lactulose Liq) 30 ml PO DAILY PRN PRN Reason: SEVERE CONSITIPATION Mineral Oil (Muri-Lube Oil) 10 ml TOPICAL PRN PRN PRN Reason: PRN perineal massage Naloxone HCl (Narcan Inj) 0.1 mg IV.PUSH Q2M PRN PRN Reason: for opiate reversal Nifedipine (Procardia Xl) 30 mg PO DAILY [facility] Last Admin: 10/10/18 15:03 Dose: 30 mg Ondansetron HCl (Zofran Inj) 4 mg IV.PUSH Q6H PRN PRN Reason: NAUSEA OR VOMITING Ondansetron HCl (Zofran Odt) 4 mg PO Q6H PRN PRN Reason: NAUSEA OR VOMITING Senna/Docusate Sodium (Jaclyn-Colace) 1 tab PO BID [facility] Last Admin: 10/10/18 23:14 Dose: 1 tab Sennosides (Senokot) 17.2 mg PO Q12H PRN PRN Reason: Moderate Constipation Sodium Chloride (Ns Flush) 2 ml IV.FLUSH BID BAUDILIO Last Admin: 10/10/18 23:15 Dose: 2 ml Sodium Chloride (Ns Flush) 2 ml IV.FLUSH PRN PRN PRN Reason: FLUSH AFTER USING IV ACCESS Witch Amelia/Glycerin (Tucks Pads) 1 applicatio RECTAL QID PRN PRN Reason: HEMORRHOIDS Zolpidem Tartrate (Ambien) 5 mg PO HS PRN PRN Reason: SLEEP Assessment and Plan - Diagnosis (1) 39 weeks gestation of Code(s): Z3A.39 - 39 weeks gestation of Status: Acute Plan: 38y/o female at 39 weeks gestation admitted for labor induction. complicated by chronic hypertension. -GBS negative -Cervical exam: /-3 -patient with slight decrease in urine output (35cc/hr) thus will decrease mag sulfate to 1G/hr and give 1 LR bolus (500ml). -c/w pit - heart monitoring category 1 with baseline 140 -pt is s/p 1 LR bolus of 500mls for prior drop in BP (87/37) after receiving epidural -Blood pressure 123/70 during my evaluation -Continue with hypertension protocol as needed -Anticipate vaginal delivery dw Dr. Royce MD (2) Vaginal delivery Code(s): O80 - Encounter for full-term uncomplicated delivery Status: Acute (3) Cervical laceration Code(s): S37.63XA - Laceration of uterus, initial encounter Status: Acute - Plan Patient is a 38-year-old G 3 P 3 delivered at 39 weeks. Patient is day 2 after . Patient was counseled to do 6 weeks of pelvic rest. Patient was counseled to follow up in 6 weeks. --Blood pressure 142/96 this am, 24 hr range: 120-160s/70-100s. Continue to monitor. -- c/w procardia xl 30mg QD --s/p magnesium sulfate --Creatinine raised at 1.24 10/10. Diuresed 6.7L in 24 hours. Repeat Cr WNL ( 0.97). --Motrin and Percocet when necessary for pain --Encourage OOB --Pelvic rest for 6 weeks will need follow-up appointment at that time. --Contraception: Patient states that she will abstain. She is not interested in pharmacological contraception. --Anticipate discharge tomorrow Discussed with OB hospitalist, Dr. Crane
[2018-10-11] MEDS: Senna/Docusate Sodium 8.6/50 MG Tablet PO SCH (08:19)
[2018-10-11] MEDS ORDERED: Atenolol 50 MG Tablet PO ONE (13:00)
== END 2018-10-11 19:33 | disposition home or self-care (01) | DRG 768 ==
LOC: HOBED 17:31 → H2E 18:22 → H1EA 10-10 16:53
PROVIDERS: ADMIT Obstetrics & Gynecology Maternal & Fetal Medicine; ATTEND Obstetrics & Gynecology Maternal & Fetal Medicine
CPT/HCPCS: 59025; 80053; 80307; 81001; 82805; 84550; 85014; 85018; 85025; 85027; 86850; 86900; 86901; 99285; G0481; G0483; J0360; J2590; J3010; J3475; J7120